=== PATIENT | female | born 1980 | race Caucasian/White ===

== ENCOUNTER → 2017-02-22 | Outpatient (CLI) | payer OTHER ==
[~2017-02-22] MED LIST: ALPR0.25 PO; CPR500T PO; DESV100T PO; DIAZ5TAB3 PO; DOCU100C37 PO; ESTR0.62 PO; FENO200C PO; FLUC100T6 PO; Fluticasone Propionate NS; GBPN300C PO; GLYB2.5T4 PO; HYDR-3583 PO; HYDR-3816 PO; IBUP-1773 PO; IBUP800T26 PO; IOHEXOL 350 MG/ML 100 ML (OMNIPAQUE 350) VIAL IV ONE; LEVO5TAB12 PO; METF-473 PO; MTF500T PO; Meclizine Hcl PO; NITR100C3 PO; NS 100 ML (IVPB) BAG IV ONE; ONDA2VIA IV; ONDA2VIA3 IV; ONDN4T PO; PHEN-483 PO; PHEN200T27 PO; Prednisone PO; SIME80TA16 PO; SPIR100T28 PO; TRAM50TA2 PO; VNL75CCR PO; diphenhydrAMINE 50 MG/ML INJ (BENADRYL) IVP ONE; diphenhydrAMINE 50 MG/ML INJ (BENADRYL) ONE; methylPREDNISolone 125 MG (Solu-MEDROL) VIAL IVP ONE; methylPREDNISolone 125 MG (Solu-MEDROL) VIAL ONE
[2017-02-22 15:47] LABS: MEAN PLATELET VOLUME 9.4 FL (7.4-10.4); RED BLOOD COUNT 5.66 10^6/uL (4.35-5.85); WHITE BLOOD COUNT 7.3 10^3/uL (4.3-11.0)
[2017-02-22 16:03] LABS: hs C REACTIVE PROTEIN 0.27 MG/DL (0.00-0.50)
--- NOTE | 2017-02-22 16:57 | Diagnostic Imaging Report ---
PROCEDURE: CT abdomen and pelvis with and without contrast. TECHNIQUE: Precontrast acquisitions were acquired through the abdomen and pelvis. Multiple contiguous axial images were obtained through the abdomen and pelvis after the administration of intravenous contrast. INDICATION: Hematuria. Right lower quadrant pain. History of pancreatitis. FINDINGS: The lung bases are clear. The liver, spleen, adrenal glands and pancreas appear unremarkable. Cholecystectomy clips are seen. The CBD is 1.1 cm in caliber. The kidneys demonstrate symmetric enhancement and contrast excretion. There is a 4 mm stone in the lower pole of the left kidney without obstruction. No ureteric or bladder stones are seen on the unenhanced phase. There is no pelvic mass. No abdominal or pelvic fluid collection is seen. There is a tiny fat-containing umbilical hernia. The osseous structures appear grossly unremarkable. IMPRESSION: 1. Nonobstructive 4 mm lower pole left kidney stone. No hydronephrosis. 2. Tiny fat-containing umbilical hernia. Dictated by: Dictated on workstation # [id number]
== END ==
LOC: RAD 15:30
PROVIDERS: ATTEND Nurse Practitioner Family
DX: N20.0 Calculus of kidney (principal); K42.9 Umbilical hernia without obstruction or gangrene
CPT/HCPCS: 36415; 74178; 83690; 85027; 86141

== ENCOUNTER 2020-02-17 09:10 | Emergency (ER) | payer BC ==
[~2020-02-17] VITALS: Ht 170 cm; Wt 102.0 kg
[~2020-02-17 09:10] MED LIST changes: +HYDR-34 PO; -HYDR-3816 PO; -IOHEXOL 350 MG/ML 100 ML (OMNIPAQUE 350) VIAL IV ONE; -NS 100 ML (IVPB) BAG IV ONE; -diphenhydrAMINE 50 MG/ML INJ (BENADRYL) IVP ONE; -diphenhydrAMINE 50 MG/ML INJ (BENADRYL) ONE; -methylPREDNISolone 125 MG (Solu-MEDROL) VIAL IVP ONE; -methylPREDNISolone 125 MG (Solu-MEDROL) VIAL ONE
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
[2020-02-17 10:16] LABS: BILIRUBIN,URINE NEGATIVE (NEGATIVE); CLARITY,URINE CLEAR; COLOR,URINE YELLOW; GLUCOSE, URINE (UA) TRACE (NEGATIVE); KETONES,URINE TRACE (NEGATIVE); LEUKOCYTE ESTERASE ,URINE NEGATIVE (NEGATIVE); NITRITE,URINE NEGATIVE (NEGATIVE); PH,URINE 6.5 (5-9); PROTEIN,URINE NEGATIVE (NEGATIVE)
[2020-02-17 10:23] LABS: BASOPHILS % (AUTO) 1 % (0-10); EOSINOPHILS # (AUTO) 0.1 10^3/uL (0.0-0.3); EOSINOPHILS % (AUTO) 2 % (0-10); HEMATOCRIT 43 % (35-52); HEMOGLOBIN 13.9 g/dL (11.5-16.0); LYMPHOCYTES # (AUTO) 2.4 10^3/uL (1.0-4.0); LYMPHOCYTES % (AUTO) 45 % (12-44); MEAN CORPUSCULAR HEMOGLOBIN 25 pg (25-34); MEAN CORPUSCULAR HGB CONC 32 g/dL (32-36); MEAN CORPUSCULAR VOLUME 78 fL (80-99); MEAN PLATELET VOLUME 9.4 fL (9.0-12.2); MONOCYTES # (AUTO) 0.4 10^3/uL (0.0-1.0); MONOCYTES % (AUTO) 6 % (0-12); NEUTROPHILS # (AUTO) 2.6 10^3/uL (1.8-7.8); NEUTROPHILS % (AUTO) 47 % (42-75); PLATELET COUNT 292 10^3/uL (130-400); WHITE BLOOD COUNT 5.5 10^3/uL (4.3-11.0)
[2020-02-17 10:35] LABS: ALBUMIN 4.8 GM/DL (3.2-4.5)
[2020-02-17 10:36] LABS: CHLORIDE 105 MMOL/L (98-107); SODIUM 140 MMOL/L (135-145)
[2020-02-17 10:37] LABS: CALCIUM 9.4 MG/DL (8.5-10.1)
[2020-02-17 10:38] LABS: GLUCOSE 138 MG/DL (70-105); TOTAL PROTEIN 7.2 GM/DL (6.4-8.2)
[2020-02-17 10:39] LABS: CARBON DIOXIDE 22 MMOL/L (21-32)
[2020-02-17 10:40] LABS: BILIRUBIN,TOTAL 0.5 MG/DL (0.1-1.0)
[2020-02-17 10:41] LABS: ALKALINE PHOSPHATASE 51 U/L (40-136)
[2020-02-17 10:42] LABS: BACTERIA,URINE TRACE /HPF; CREATININE SERUM 0.73 MG/DL (0.60-1.30); GFR ESTIMATED > 60; RBC,URINE 25-50 /HPF; WBC,URINE RARE /HPF
[2020-02-17 10:43] LABS: BUN/CREATININE RATIO 26
[2020-02-17 10:44] LABS: ALANINE AMINOTRANSFERASE 41 U/L (0-55)
[2020-02-17 10:45] LABS: LIPASE 39 U/L (8-78)
--- NOTE | 2020-02-17 11:50 | Diagnostic Imaging Report ---
PROCEDURE: CT abdomen and pelvis without contrast. TECHNIQUE: Multiple contiguous axial images were obtained through the abdomen and pelvis without the use of intravenous contrast. Auto Exposure Controls were utilized during the CT exam to meet ALARA standards for radiation dose reduction. INDICATION: Right-sided pain. FINDINGS: The previous CT abdomen/pelvis exam of 02/22/2017 noted a 4 mm nonobstructing calculus in the inferior pole of the left kidney. That finding is no longer evident on this study; however, in the interval since the prior study, a 2.8 mm calculus has developed and is now in the proximal most portion of the right ureter. There does not appear to be any high-grade obstruction of the right collecting system by the calculus. There are also two other small 2 mm nonobstructive calculi within the right kidney. There is no other evidence for nephrolithiasis or urolithiasis. As noted on the prior exam, the liver is enlarged and of lower density than usually seen. This does suggest fatty metamorphosis. The gallbladder is surgically absent. The spleen, pancreas, adrenals, aorta, and inferior vena cava show no sign of an acute abnormality. The stomach is not well-distended and difficult to assess. There is no pelvic mass or free fluid collection evident. The uterus is surgically absent. The urinary bladder is grossly unremarkable. As seen on the previous study, there is a fair amount of fecal material in the rectosigmoid portion of the colon. The appendix is not well-visualized but there are no indirect signs of acute appendicitis. The bone windows show no fracture or destructive lesion. The lung bases are clear. IMPRESSION: 1. In the interval since the prior study, a 2.8 mm calculus has developed in the proximal right ureter. This does not appear to be producing a high-grade obstruction of the right collecting system. There are also two other small 2 mm nonobstructive calculi within the right kidney. 2. There is no acute abnormality of the abdomen or pelvis noted otherwise. 3. These results were discussed with Dr. Shelby. Dictated by: Dictated on workstation # [id number]
[2020-02-17] MEDS ORDERED: HYDR-4226 PO (12:28)
[2020-02-17 12:41] VITALS: BP 129/96
--- NOTE | 2020-02-17 12:41 | NUR ---
PT DISCHARGED TO HOME W/ RX ET INSTR. PT TO F/U W/ PCP ET RETURN IF SYMPTOMS CHANGE OR GET WORSE. UNDERSTANDING VOICED.
== END 2020-02-17 12:41 | disposition home or self-care (01) ==
LOC: EDUNIT# 09:10 → ER 09:11
DX: N20.1 Calculus of ureter (principal); F41.9 Anxiety disorder, unspecified; F32.9 Major depressive disorder, single episode, unspecified; E11.9 Type 2 diabetes mellitus without complications; Z82.61 Family history of arthritis; Z82.49 Family history of ischemic heart disease and other diseases of the circulatory system; Z83.3 Family history of diabetes mellitus; Z88.0 Allergy status to penicillin; Z88.1 Allergy status to other antibiotic agents; Z88.8 Allergy status to other drugs, medicaments and biological substances; Z79.84 Long term (current) use of oral hypoglycemic drugs
CPT/HCPCS: 36415; 74176; 80053; 81000; 83690; 85025